=== PATIENT | male | born 1965 | race American Indian/Alaskan Native ===

== ENCOUNTER 2018-12-20 10:32 | Day surgery (SDC) | payer OTHER ==
[2018-12-20] MEDS ORDERED: LIDOCAINE MPF (2%) 20 MG/1 ML VIAL 5 ML ONE (11:00)
[2018-12-20] MEDS ORDERED: SODIUM CHLORIDE 0.9% 1000 ML 1,000 ML ONE (11:07)
[2018-12-20] MEDS ORDERED: hydrALAZINE 20 MG/1 ML INJ IV ONE ×2 (11:08→11:39)
[2018-12-20] MEDS ORDERED: LABETALOL 20 MG/4 ML INJ IV ONE ×2 (11:38→11:59)
--- NOTE | 2018-12-20 11:53 | Anesthesia Consultation ---
Anesthesia Consult and Med Hx Date of service: 12/20/18 - Airway Anesthetic Teeth Evaluation: Good ROM Head & Neck: Adequate Mental/Hyoid Distance: Adequate Mallampati Class: Class II Intubation Access Assessment: Good - Pulmonary Exam CTA: Yes - Cardiac Exam Cardiac Exam: RRR - Pre-Operative Health Status ASA Pre-Surgery Classification: ASA2 Proposed Anesthetic Plan: General - Pulmonary Hx Smoking: Yes - Cardiovascular System Hx Hypertension: Yes
--- NOTE | 2018-12-20 11:54 | Anesthesia Day of Surgery ---
Anesthesia Day of Surgery - Day of Surgery Patient Examined: Yes Patient H&P Reviewed: Yes Patient is NPO: Yes
[2018-12-20] MEDS ORDERED: SODIUM CHLORIDE 0.9% 1000 ML 1,000 ML IV SCH (12:00)
[2018-12-20] MEDS ORDERED: PROPOFOL 200 MG/20 ML VIAL IV ONE ×5 (12:08→13:06)
--- NOTE | 2018-12-20 13:05 | Post Anesthesia Evaluation ---
- Post Anesthesia Evaluation Patient Participated: Yes Airway Patent: Yes Stable Respiratory Function: Yes Nausea/Vomiting: No Temp > 96.8F: Yes Pain Manageable: Yes Adequeate Hydration: Yes Anesthesia Complications: No Block Receding Appropriately: Not Applicable Patient on Ventilator: No
--- NOTE | 2018-12-20 13:19 | Operative Report ---
Operative Report Operative Report: Procedure: Colonoscopy with Multiple cold snare polypectomies, submucosal injection with elevation of colon polyps, Hot biopsy polypectomies, Polyp Ablations. Attending physician: Kel Adorno M.D. Reinforcing Iron Worker Helper: Kel Adorno M.D. Indication: Patient is a 53-year-old male who presents for screening colonosc opy. Patient has a family history of colon cancer. He has not had a previous colonoscopy. This colonoscopy serves to evaluate patient so that treatment may be directed based on the findings. Consent: Informed consent was obtained after advising the patient and family regarding nature of this procedure, its indications, potential benefits as well as possible complications including but not limited to bleeding perforation and adverse reaction to medication, infection as well as other cardiopulmonary complications. An informed written and verbal consent was then obtained after due opportunity was provided for questions and answers. Monitoring: Patient was monitored continuously with pulse oximetry and electrocardiographic recordings as well as blood pressure recordings. Vital signs remained stable throughout this procedure with no untoward events. Preoperative assessment: Patient was assessed immediately prior to this procedure for capacity to tolerate monitored anesthesia care and moderate sedation as well as general anesthesia. Patient's ASA classification is 2, Mallampati class is 2, Hyomental distance is 3. Instrument: Olympus video colonoscope.: CF-HQ 190L Medications: Propofol given intravenously in divided doses. For details please refer to anesthesia records. Description of procedure: Patient was placed in the left lateral decubitus position after achieving sedation, a digital rectal examination was performed following which the colonoscope was introduced into the anal verge and advanced to the cecum which was identified by the cecal valve, the appendiceal orifice, as well as by the cecal strap and direct transillumination. The colonoscope was subsequently withdrawn with careful inspection of all mucosal surfaces. Patient tolerated this procedure well and was subsequently taken to the recovery room. The following findings were noted. Findings: The preparation was relatively poor with substantial retained thick liquid and semisolid stool in the cecum and ascending colon and transverse colon. There were no gross mucosal abnormalities otherwise seen in the cecum and ascending colon. In the transverse colon, patient had 2 diminutive polyps that were ablated. Additional 2 polyps were removed by hot biopsy polypectomy. In the descending colon, patient had a descending colon polyp that was ablated and additional 2 descending colon polyps that were removed by cold snare polypectomy. In the sigmoid colon and also in the descending colon, there were additional 6 polyps there were removed by cold snare polypectomy after submucosal injection. Multiple diminutive polyps in the distal sigmoid colon as well as in the rectum were ablated. On a retroflexed view at the anal verge, patient had internal hemorrhoids. Impression: Poor colonoscopic preparation Transverse colon polyp status post ablation Transverse colon polyp status post hot biopsy polypectomy Descending colon polyp status post ablation, cold snare polypectomy and sub mucosal injection. Sigmoid colon polyp status post cold snare polypectomy and also ablation and also submucosal injection. Rectal polyp status post ablation Retained stool Internal hemorrhoids. Plan: Follow pathology report. High-fiber diet. Consider repeat colonoscopy in 6 months to one year due to poor colonoscopic preparation and findings of multiple colon polyps as well as patient's family history.
--- NOTE | 2018-12-20 13:20 | Discharge Summary ---
Short Stay Discharge Plan Activity: advance as tolerated Weight Bearing Status: Weight Bear as Tolerated Diet: regular Additional Instructions: Post Sedation D/C Instructions When you return home you may resume your regular diet unless otherwise directed. -Go directly home from the hospital and rest quietly. Do NOT drive, return to work, operate any machinery or make any important personal or business decisions today. -Do NOT drink any alcohol or take nerve or sleeping drugs. They add to the effects of the medicine still present in your body. No Aspirin or Aspirin products for 5 days. Follow up with: [facility] [Primary Care Provider] - 7 Days
[2018-12-20 13:33] VITALS: BP 149/93
== END 2018-12-20 10:33 | disposition home or self-care (01) ==
LOC: GIO 10:32
PROVIDERS: ATTEND Internal Medicine Gastroenterology
DX: Z12.11 Encounter for screening for malignant neoplasm of colon (principal); K62.1 Rectal polyp; K63.5 Polyp of colon; K64.8 Other hemorrhoids; E78.00 Pure hypercholesterolemia, unspecified; I10 Essential (primary) hypertension; Z80.0 Family history of malignant neoplasm of digestive organs; F17.210 Nicotine dependence, cigarettes, uncomplicated; Z79.899 Other long term (current) drug therapy; Z79.82 Long term (current) use of aspirin
CPT/HCPCS: 45381; 45384; 45385; 45388; 88305; J0360; J2704; J7030